=== PATIENT | male | born 1945 | race African-American/Black ===

== ENCOUNTER 2016-08-29 20:30 | Observation (INO) | payer OTHER ==
[2016-08-29] MEDS ORDERED: NITROGLYCERIN TOP ONE (20:43)
[2016-08-29] MEDS ORDERED: VASOTEC IV ONE (20:44)
[2016-08-29] MEDS ORDERED: ASPIRIN PO ONE (20:45)
--- NOTE | 2016-08-29 20:49 | PROVIDER DOCUMENTATION ---
HPI-Respiratory General - General Chief Complaint: Shortness of Breath Stated Complaint: SOB/CHEST PAIN Time Seen by Provider: 08/29/16 20:35 Source: patient Allergies/Adverse Reactions: Patient Allergies Allergy/AdvReac Type Severity Reaction Status Date / Time methylprednisolone sodium Allergy Intermediate SWELLING Verified 08/29/16 21:04 succ... * [From Solu-Medrol] morphine Allergy ITCHING Verified 08/29/16 22:01 Home Medications: Home Medication List Medication Instructions Recorded Confirmed Last Taken Type Valsartan/Hydrochlorothiazide 320 each PO DAILY 11/24/13 08/29/16 08/29/16 History [Diovan Hct 160-25 mg Tablet] Allopurinol 300 mg PO DAILY 11/26/15 08/29/16 08/29/16 History Baclofen 10 mg PO Q4-6H PRN PRN #30 tablet 08/24/16 08/29/16 08/29/16 Rx Tramadol [Ultram] 50 mg PO Q8H PRN PRN #30 tablet 08/24/16 08/29/16 08/29/16 Rx - History of Present Illness-Resp Nature of Presenting Problem: 70 YOBLKM PRESENTS TO ED WITH C/O PT STATES CANT BREATH AND CANT SWALLOW. PT STATES A CHOKING FEELING X 3 DAYS. SOB AND SWALLOWING PROBLEM STARTED 3 OR 4 HOURS [employer]PUT[employer]. Quality of Pain: reports: none Severity in ED: reports: moderate Onset/Duration: reports: 3 days ago Timing: reports: still present Exposure: reports: unknown cause Cough Quality/Degree: reports: moderate Modifying Factors: improves with: lying down (WORSEN) Associated Symptoms: reports: short of breath Similar Symptoms Previously?: No Recently seen or treated by another doctor?: No Review of Systems - Adult - REVIEW OF SYSTEMS - ADULT Constitutional: denies: chills, fever Eyes: reports: no symptoms reported Ears, Nose, Mouth & Throat: reports: no symptoms reported Cardiovascular: denies: chest pain, palpitations, syncope Respiratory: reports: cough, shortness of breath. denies: wheezing Gastrointestinal: denies: abdominal pain, diarrhea, nausea, vomiting Genitourinary: reports: no symptoms reported Musculoskeletal: denies: back pain, neck pain Integumentary: reports: no symptoms reported Neurological: denies: dizziness/vertigo, headache/migraines, syncope Psychiatric: reports: no symptoms reported Endocrine: reports: no symptoms reported Hematologic/Lymphatic: reports: no symptoms reported Allergic/Immunologic: reports: no symptoms reported All Other Systems: Reviewed and Negative Past History - Adult - PAST MEDICAL HISTORY-ADULT Review of Records: reports: Nursing Assessment Review, Medications Reviewed Cardiovascular: reports: HTN Musculoskeletal: reports: other (gout) Endocrine/Immune: reports: other (Gout) - PRIOR SURGERIES/PROCEDURES Surgical/Procedure History: reports: appendectomy, orthopedic (extremity) - IMMUNIZATION STATUS Childhood Immunizations: See Nurse Assessment Flu Vaccine: See Nurse Assessment - FAMILY HISTORY Family History: reviewed, not pertinent - SOCIAL HISTORY Smoking: quit less than 1 year, cigarettes, less than 1 pack/day Substance Use: denies Alcohol Use Frequency: never Living Situation: alone Physical Exam-General - CONSTITUTIONAL General Appearance: alert, moderate distress - EYES Eyes: PERRL/EOMI, pink conjunctivae - HEAD, EARS, NOSE, MOUTH & THROAT HENMT: normocephalic/atraumatic, moist mucous membranes - NECK Neck: non-tender, full range of motion, supple - RESPIRATORY Respiratory: chest non-tender, lungs clear, normal breath sounds - CARDIOVASCULAR Cardiovascular: normal peripheral pulses, regular rate, rhythm - GASTROINTESTINAL (ABDOMEN) Abdominal Exam: normal bowel sounds, non tender, soft - LYMPHATIC Lymphatic: no adenopathy - MUSCULOSKELETAL Back Exam: normal inspection, no CVA tenderness, no vertebral tenderness Extremity: normal range of motion, non-tender - SKIN Integumentary: normal color, normal turgor, warm/dry - NEUROLOGIC Neurologic: grossly normal - PSYCHIATRIC Psych/Mental Status: oriented x 3 Progress - PLAN OF CARE/RESULTS Progress/Plan/Lab Results: Laboratory Tests 08/29/16 08/29/16 08/29/16 20:50 20:50 20:50 WBC RBC Hgb Hct MCV MCH MCHC RDW Std Deviation Plt Count MPV Immature Gran % (Auto) Neut % (Auto) Lymph % (Auto) [place] % (Auto) Eos % (Auto) Baso % (Auto) Immature Gran # (Auto) Neut # (Auto) Lymph # (Auto) [place] # (Auto) Eos # (Auto) Baso # (Auto) Sodium 139 Potassium 3.9 Chloride 104 Carbon Dioxide 23 L Anion Gap 12 BUN 18 Creatinine 1.2 Estimated GFR/1.73 m2 60 BUN/Creatinine Ratio 15 Glucose 108 H Calculated Osmolality 280 Calcium 9.8 Total Bilirubin 0.20 AST 23 ALT 20 Alkaline Phosphatase 112 Creatine Kinase 145 Troponin T < 0.010 Ymo-H-Jgcrepdcamc Pept 295 H Total Protein 7.7 Albumin 4.3 Globulin 3.0 Albumin/Globulin Ratio 1.0 08/29/16 20:50 WBC 9.49 RBC 4.83 Hgb 14.4 Hct 42.7 MCV 88.4 MCH 29.8 MCHC 33.7 RDW Std Deviation 15.0 H Plt Count 203 MPV 9.8 Immature Gran % (Auto) 0.2 Neut % (Auto) 48.3 Lymph % (Auto) 42.7 [place] % (Auto) 7.2 Eos % (Auto) 1.4 Baso % (Auto) 0.2 Immature Gran # (Auto) 0.02 Neut # (Auto) 4.59 Lymph # (Auto) 4.05 H [place] # (Auto) 0.68 H Eos # (Auto) 0.13 Baso # (Auto) 0.02 Sodium Potassium Chloride Carbon Dioxide Anion Gap BUN Creatinine Estimated GFR/1.73 m2 BUN/Creatinine Ratio Glucose Calculated Osmolality Calcium Total Bilirubin AST ALT Alkaline Phosphatase Creatine Kinase Troponin T Vle-Q-Ijrsnkbrdqj Pept Total Protein Albumin Globulin Albumin/Globulin Ratio Orders Category Date Time Status BNP [PRO B-NATRIURETIC PEPTIDE] Stat Lab 08/29/16 20:50 Completed CBC WITH DIFF [HEME] Stat Lab 08/29/16 20:50 Completed CK PROFILE [SP CHEM] Stat Lab 08/29/16 20:50 Completed COMPREHENSIVE METABOLIC PANEL [CHEM] Stat Lab 08/29/16 20:50 Completed TROPONIN T Stat Lab 08/29/16 20:50 Completed Aspirin Med 08/29/16 20:45 Discontinued 325 mg PO NOW ONE Enalaprilat [Vasotec] Med 08/29/16 20:44 Discontinued 2.5 mg IV NOW ONE Nitroglycerin Med 08/29/16 20:43 Discontinued 1 inch TOP NOW ONE EKG [EKG] Stat Ther 08/29/16 20:36 Draft Vital Signs - 24 hr 08/29/16 20:36 Temperature 98.5 F Pulse Rate 77 Respiratory 18 Rate Blood Pressure 186/109 O2 Sat by Pulse 98 Oximetry - EKG 1 Time of EKG reading by physician:: 20:45 EKG Read and Signed by:: Adeel Oliver EKG Interpretation (*Must complete 3 of following elements*): Abnormal Rate: 72 Rhythm: SINUS RHYTHM W [address] DEG[address] AVBLOCK [place]: left (DEVIATION) QRS: RBB [place] Interval: normal ST Wave: normal Comments: MINIMAL CRITERIA FOR LVH,MAY BE NORMAL 2 Time of EKG reading by physician:: 23:01 EKG Read and Signed by:: Adeel Oliver EKG Interpretation (*Must complete 3 of following elements*): Abnormal Rate: 80 Rhythm: 1ST DEGREE AV BLOCK QRS: RBB [place] Interval: normal ST Wave: normal - CONSULTS/PCP/HOSPITALIST Notification #1 *Consult/PCP/Hospitalist*: DR SERVIN Time Discussed: 00:13 Reason/Comments: DR OLIVER SPOKE WITH DR SERVIN. DR SERVIN WILL ADMIT. Consult Disposition: Admit Departure - Departure Time of Disposition Order: 00:20 DIAGNOSIS: Chest pain, rule out acute myocardial infarction Disposition: ADMITTED INPATIENT 09 Certified Medical Emergency: Emergent Condition: Stable Additional Instructions: ED Follow Up Instructions: You have been treated by a care provider in the Emergency Department. These instructions are being provided to you so you can have an understanding of how to care for yourself upon discharge. Upon discharge from the Emergency Department, you are responsible for making arrangements for follow-up care by a physician of your choice. Take all prescribed medications as directed. Return to the Emergency Department immediately for any new or worsening symptoms. You may call the Physician Referral phone number at [phone] to obtain a list of Physicians who are taking new patients. Referrals: Lv Servin MD [Primary Care Provider] - Attestation - Scribe Verification/Attestation Scribe:: Andrew Nguyen Acting as Scribe for:: Adeel Oliver Scribe documention review:: This chart was documented by a scribe and accurately reflects the service the provider performed and the decisions made by the provider.
[2016-08-29 20:58] LABS: MANUAL DIFF NEEDED? NO
[2016-08-29 21:01] LABS: BASO% 0.2 % (0.0-0.8); EOS# 0.13 X1000 (0.0-0.7); EOS% 1.4 % (0.0-10.0); HEMATOCRIT 42.7 % (42.0-52.0); HEMOGLOBIN 14.4 g/dL (14.0-18.0); IMM GRAN# 0.02 X1000 (0.0-0.04); IMM GRAN% 0.2 % (0.0-0.5); LYMPH# 4.05 X1000 (1.2-3.4); LYMPH% 42.7 % (20.5-51.1); MCH 29.8 PG (27-31); MCHC 33.7 g/dL (33-37); MCV 88.4 FL (81-99); MONO# 0.68 X1000 (0.11-0.59); MONO% 7.2 % (1.7-9.3); MPV 9.8 FL (7.4-10.4); NEUT% 48.3 % (42.2-75.2); PLT 203 X1000 (130-400); RBC 4.83 XMIL (4.7-6.1)
--- NOTE | 2016-08-29 21:03 | EKG Report ---
Test Performed on : 08/29/2016 8:44:08 PM Test Reason : pain Blood Pressure : / mmHG Vent. Rate : 072 BPM Atrial Rate : 072 BPM P-R Int : 232 ms QRS Dur : 150 ms QT Int : 414 ms P-R-T Axes : 053 -30 015 degrees QTc Int : 453 ms Sinus rhythm. with 1st degree AV block. Left axis deviation Right bundle branch block Minimal voltage criteria for LVH, may be normal variant Abnormal ECG When compared with ECG of 24-AUG-2016 18:43, No significant change was found Unconfirmed Result
[2016-08-29 21:17] LABS: ALBUMIN 4.3 g/dL (3.5-5.0); CALCIUM 9.8 mg/dL (8.8-10.2); POTASSIUM 3.9 mmol/L (3.5-5.1); TOTAL BILIRUBIN 0.2 mg/dL (0.20-1.00); TOTAL PROTEIN 7.7 g/dL (6.3-8.3)
[2016-08-29] MEDS ORDERED: APRESOLINE IV ONE (21:35)
[2016-08-29] MEDS ORDERED: LASIX IV ONE (21:35)
[2016-08-29] MEDS ORDERED: SODIUM CHLORIDE 0.9% INJ ONE (21:38)
[2016-08-29] MEDS ORDERED: MORPHINE IV ONE (21:38)
[2016-08-29] MEDS ORDERED: PHENERGAN IV ONE (21:38)
[2016-08-29] MEDS ORDERED: DEMEROL IV ONE (22:04)
--- NOTE | 2016-08-29 23:21 | EKG Report ---
Test Performed on : 08/29/2016 11:00:02 PM Test Reason : pain Blood Pressure : / mmHG Vent. Rate : 080 BPM Atrial Rate : 080 BPM P-R Int : 250 ms QRS Dur : 138 ms QT Int : 428 ms P-R-T Axes : 053 -13 018 degrees QTc Int : 493 ms Sinus rhythm. with 1st degree AV block. Right bundle branch block Abnormal ECG When compared with ECG of 29-AUG-2016 22:58, (Unconfirmed) No significant change was found Unconfirmed Result
[2016-08-30] MEDS: TYLENOL PO PRN ×2 (02:19→19:31)
[2016-08-30] MEDS: NS 1,000 ML IV SCH (02:48)
[2016-08-30] MEDS: LASIX IV SCH ×2 (02:48→13:33)
--- NOTE | 2016-08-30 05:48 | EKG Report ---
Test Performed on : 08/30/2016 05:39:05 AM Test Reason : C/P Blood Pressure : / mmHG Vent. Rate : 069 BPM Atrial Rate : 069 BPM P-R Int : 204 ms QRS Dur : 158 ms QT Int : 472 ms P-R-T Axes : 054 -17 000 degrees QTc Int : 505 ms Normal sinus rhythm. Right bundle branch block Abnormal ECG When compared with ECG of 29-AUG-2016 23:00, (Unconfirmed) MS interval has decreased Confirmed by Lv Rocha MD ([id number]) on 09/15/2016 9:51:53 PM
[2016-08-30] MEDS: DIOVAN PO SCH (09:08)
[2016-08-30] MEDS: HYDROCHLOROTHIAZIDE PO SCH (09:09)
[2016-08-30] MEDS: ZYLOPRIM PO SCH (09:09)
[2016-08-30] MEDS ORDERED: NORCO-5 PO ONE ×3 (09:56→21:21)
--- NOTE | 2016-08-30 14:55 | Diag Imaging Result Document ---
PROCEDURE NAME: CHEST-2 VIEWS - 08/30/2016 TWO VIEWS OF THE CHEST: FINDINGS: There is no evidence of acute cardiac or pulmonary disease. There are severe degenerative changes in the right acromioclavicular joint. Compared to 08/24/2016, there has been significant change in the appearance of the chest. IMPRESSION: No evidence of acute disease.
--- NOTE | 2016-08-30 17:43 | CONSULTATION ---
DATE OF CONSULTATION: 08/30/2016 INDICATION: Shortness of breath, chest discomfort. HISTORY OF PRESENT ILLNESS: Mr. Kruger is a 70-year-old, black male with a history of hypertension, who over the last 3-4 days has had relatively constant chest discomfort, dysphagia as well as shortness of breath. This does not seem to be exertional in nature in regard to dyspnea or the chest discomfort. He has had difficulty swallowing solids but not liquids. He reports no exertional component to the chest pain. He has had worsening chest discomfort with coughing. There has been some mild orthopnea as well. He has no history of heart failure nor does he have any history of coronary disease. He reports no recent changes in his medications. He apparently came to the ER 5-6 days ago with similar complaints. PAST MEDICAL HISTORY: 1. Hypertension. 2. Gout. SOCIAL HISTORY: No current tobacco or alcohol. FAMILY HISTORY: Hypertension. REVIEW OF SYSTEMS: A 10 system review of systems is negative except for those mentioned in HPI. PHYSICAL EXAMINATION: Vital Signs: He is afebrile, heart rate is 68, blood pressure 118/76. General: He is in no acute distress. HEENT: Oropharynx is moist. Normal dentition. Eye examination is pink conjunctivae, white sclerae. Neck: Examination shows no obvious thyromegaly or thyroid tenderness. Cardiovascular: He is in regular rate and rhythm. He has no obvious murmurs. No S3. He has no lower extremity edema. He has no carotid bruits. Chest examination: Clear bilaterally. No increased work of breathing. Abdomen: Soft, nontender, nondistended. No obvious organomegaly. Skin Examination: Warm and dry without any rashes. Neurological: Moving all extremities well. Cranial nerves 2-12 are intact without any sensation deficits. Psychiatric: Alert and oriented, pleasant. Normal mood and affect. PERTINENT DATA: White count is 9.4, hematocrit 42, platelet count 203,000, sodium 139, potassium 3.9, BUN 18, creatinine 1.2. Cardiac enzymes are negative times multiple sets. proBNP is 295. Electrocardiogram was reviewed and demonstrates sinus rhythm, right bundle branch block, first- degree AV block is noted, no acute ST-segment changes. EKG at 23:00 yesterday is similar to the one that he had today. No acute ischemic changes or evidence for old infarct. ASSESSMENT: 1. Chest pain. 2. Dysphagia. 3. Shortness of breath. PLAN: Echo is currently pending. We will order myocardial perfusion imaging in the morning. I will start him on aspirin. If the myocardial profusion scan is normal then I would likely recommend a dysphagia evaluation and consideration for EGD or possible barium swallow. I will defer that to the primary physician.
[2016-08-30] MEDS ORDERED: NITROGLYCERIN SL PRN (19:55)
[2016-08-30 20:23] LABS: BE 1.3 mmoll (-3.0-3.0); BLOOD TYPE ARTERIAL; DRAW SITE L RADIAL; METHB 1.3 % (0.0-1.5); O2(CT) 20.4 mL/dL (15.0-23.0); PCO2(98.6) 36 mmHg (35-45); PO2(98.6) 75 mmHg (60-100); SAMPLE BLOOD; SAO2 97.7 % (95.0-100.0); THB 15.4 g/dL (11.5-17.4); pH(98.6) 7.45 (7.35-7.45)
[2016-08-30 20:26] LABS: ALLEN TEST YES; MODALITY ROOM AIR
--- NOTE | 2016-08-30 20:41 | EKG Report ---
Test Performed on : 08/30/2016 8:33:43 PM Test Reason : CP Blood Pressure : / mmHG Vent. Rate : 063 BPM Atrial Rate : 063 BPM P-R Int : 192 ms QRS Dur : 140 ms QT Int : 454 ms P-R-T Axes : 019 -30 014 degrees QTc Int : 464 ms Sinus rhythm. with occasional premature ventricular complexes. Left axis deviation Right bundle branch block Minimal voltage criteria for LVH, may be normal variant Septal infarct , age undetermined Abnormal ECG When compared with ECG of 30-AUG-2016 05:39, (Unconfirmed) premature ventricular complexes. are now present Confirmed by Lv Rocha MD ([id number]) on 09/15/2016 9:51:22 PM
[2016-08-30] MEDS ORDERED: AMBIEN PO ONE (21:20)
[2016-08-31] MEDS: LASIX IV SCH ×2 (00:04→13:53)
[2016-08-31] MEDS: NS 1,000 ML IV SCH (07:19)
[2016-08-31] MEDS: DIOVAN PO SCH (08:30)
[2016-08-31] MEDS: HYDROCHLOROTHIAZIDE PO SCH (08:30)
[2016-08-31] MEDS: ZYLOPRIM PO SCH (08:30)
[2016-08-31] MEDS ORDERED: ASPIRIN PO SCH (09:00)
--- NOTE | 2016-08-31 09:29 | ECHO REPORT ---
ORDER DATE: 08/30/2016 INTERPRETING PHYSICIAN: Parish Saldivar MD INDICATION: A 70-year-old male with chest pain and shortness of breath. The patient is at [facility], [place], [facility]. M-MODE MEASUREMENTS: Right ventricle: 3.7 cm. Left ventricle end diastole: 4.8 cm. Left ventricle end systole: 3.3 cm. Posterior wall: 1.2 cm. Interventricular septum: 1.2 cm. Left atrium: 4.1 cm. Aortic root: 4.4 cm. SUMMARY OF 2-DIMENSIONAL IMAGIN. The left ventricular function is normal. Ejection fraction is 59%. There is moderate enlargement of the left ventricular chamber. No definite wall motion abnormality appears to be present, although in some views the lateral wall is somewhat sluggish. 2. This study is somewhat difficult. 3. The right ventricle is moderately enlarged and shows good function. 4. The tricuspid valve shows mild regurgitation. 5. The inferior vena cava is not dilated. 6. The pulmonary pressure is normal. 7. The mitral valve looks normal. Color flow mapping is unremarkable. 8. Pulse wave Doppler of mitral inflow showed reversal of the E and the A waves. 9. Tissue Doppler of septal and lateral mitral annulus averages 7.5 cm. 10.Pulse wave Doppler of pulmonary venous flow is normal. There is no definite diastolic dysfunction. 11.The aortic valve opens normally. Color flow mapping is unremarkable. There is no stenosis and no regurgitation. 12.The pulmonic valve is normal. Color flow mapping is unremarkable. 13.There is no pericardial effusion and no sign of thrombus. SUMMARY: In summary, this study shows: 1. Overall preserved left ventricular systolic function. Ejection fraction appears to be in the neighborhood of 59%. Questionable sluggish motion of the posterolateral wall. 2. The right ventricle is moderately enlarged and shows good function. 3. No significant valvular abnormality is noted. 4. No definite diastolic dysfunction. 5. No pulmonary hypertension. Clinical correlation is recommended.
[2016-08-31] MEDS ORDERED: VALIUM PO ONE (10:59)
[2016-08-31] MEDS ORDERED: LEXISCAN ONE (12:45)
[2016-08-31 15:48] VITALS: BP 134/76
--- NOTE | 2016-08-31 16:24 | GRADED EXERCISE REPORT ---
DATE: 08/31/2016 PROCEDURE: Lexiscan Cardiolite stress test. Lexiscan was infused per standard protocol. Stress test by Dr. Rocha. Following Lexiscan infusion Cardiolite was injected 35.6 mCi of Cardiolite was injected for the stress phase, 12.1 mCi of Cardiolite was injected for the rest phase. Gated SPECT images were obtained in the standard views. Images revealed significant chest wall and diaphragmatic attenuation. There is no evidence of ischemia. Better tracer uptake on the stress compared to the rest. There is low- grade fixed defect in the base of the inferior wall with normal wall motion. This is likely to represent attenuation defect. Low probability of scar. Left ventricular ejection fraction 56%. Wall motion was normal. CONCLUSIONS: 1. No evidence of ischemia. 2. There is low-grade small-sized fixed defect in the base of the inferior wall with normal wall motion and significant attenuation defect is likely to represent attenuation defect, low probability of scar. 3. Left ventricular ejection fraction 56%. Wall motion was normal.
--- NOTE | 2016-09-29 23:25 | HISTORY AND PHYSICAL ---
HISTORY OF PRESENT ILLNESS: Mr. Kruger is a 70-year-old patient of mine in the office that I follow with hypertension, gout who presented to the emergency room on the day of admission, complaining of difficulty breathing and difficulty swallowing. He states he had a choking feeling for 3 days. He has been short of breath and had swallowing problems started about 3-4 hours prior to presentation. He said he had some moderate discomfort that is persistently present, it is worsened on lying down. It is associated with shortness of breath. He has never had a quite like this previously. REVIEW OF SYSTEMS: Constitutionally: Denies any fevers, chills, significant weight gain, weight loss. Eyes: No field cuts, change in visual acuity, redness or irritation. Ears, Nose and Throat: No pharyngitis, otitis or sinusitis. Cardiovascular: Denies chest pain, palpitations, syncope, irregular heart rate, edema, paroxysmal nocturnal dyspnea, orthopnea. Respiratory: He has been coughing and short of breath. Not really wheezing. Gastrointestinal: No abdominal pain, diarrhea, nausea, vomiting, melena, hematochezia or significant reflux. Genitourinary: Some lower urinary tract obstructive symptoms. Some impotence. No polyuria or hematuria. Musculoskeletal: Denies joint pain, but has some generalized neck and back pain. Skin: No rashes or lesions. Neurological: Denies dizziness, vertigo, headaches, migraine, syncope. Psychiatric: Negative. Endocrine: No polyuria, polydipsia, no heat or cold intolerance. Hematological: No clotting or bleeding disorder. No anemia, spleen issues. ALLERGIES: No asthma, eczema or hay fever. PAST MEDICAL HISTORY: He has hypertension and gout. PAST SURGICAL PROCEDURES: Appendectomy and some orthopedic surgeries in the past. SOCIAL HISTORY: He quit smoking less than a year ago. He has been a chronic smoker. He does not use illegal drugs, does not have history of any alcohol usage. PHYSICAL EXAMINATION: VITAL SIGNS: At time of admission, his temperature 98.5, pulse 77, respiratory 18, blood pressure 186/109, O2 saturation was 98. GENERAL: He was generally normal, alert and active, in moderate distress. HEENT: Eyes were PERRLA. EOMs intact. Sclerae clear, fundi benign. Nares patent. Oropharynx negative. NECK: Supple. Bounding carotids without thyromegaly or lymphadenopathy. CHEST: Bilaterally clear breath sounds. No rubs, no consolidative features were appreciated. CARDIOVASCULAR: He had a regular rhythm and rate. No murmurs, gallops, clicks, or rubs. Peripheral pulses were intact. ABDOMEN: Somewhat obese. No hepatosplenomegaly. No organomegaly and no CVA tenderness. LYMPHATICS: No lymphadenopathy. MUSCULOSKELETAL: Normal inspection of his back. No CVA tenderness. No vertebral tenderness. Normal range of motion. SKIN: Clear. NEUROLOGIC: No focal deficits were appreciated. PSYCHIATRIC: Negative. PERTINENT DATA: At time of admission, his sodium was 139, potassium 3.9, chloride 104, CO2 was 23, BUN was 18, creatinine 1.2, anion gap 12. Estimated GFR was 60, BUN ratio was 15, glucose 108, calculated osmolality 280, calcium 9.8, total bilirubin 0.12. His AST 23, ALT 20, alkaline phosphatase 112. CK 145. Troponin less than 0.010. BNP 295. Total protein 7.7, albumin 4.3, globulin 3. White count was 9490, hematocrit 42.3, platelet count was 203,000. He had a series of EKGs that show sinus rhythm, 1st degree AV block and right bundle configuration. Nonspecific ST-segment changes that did not evolve while in the ER. ASSESSMENT AND PLAN: He was admitted by the emergency room physician as a chest pain, rule out myocardial infarction.
--- NOTE | 2016-09-30 08:29 | DISCHARGE SUMMARY ---
ADMISSION DATE: 08/30/2016 DISCHARGE DATE: 08/31/2016 The patient was admitted on 08/30/2016 after he presented to the emergency room complaining of some shortness of breath and chest pain with a background history of hypertension and gout. He has an allergy to morphine and Solu-Medrol. He was seen in the ER initially. Had a right bundle-branch configuration on his EKG and admitted at for rule out. He was seen in consultation by Dr. Van. He felt that it was atypical chest pain, nonexertional in nature, and had some issues with dysphagia. He felt that this may represent the more pressing agent. He recommended us to do an echo, which was in the process and we are going to do an effusion test in the morning. His gated nuclear scan showed no evidence of ischemia. There is a low-grade small size fixed defect in the base of the inferior wall with normal wall motion and significant attenuation defects likely represent attenuation defect, low probability of scar. Ejection fraction was 56%. His chest x-ray showed no evidence acute disease. Echocardiogram showed preserved left systolic function. Ejection fraction 59%. Questionable sluggish motion in the posterior wall. Right ventricle was mildly enlarged and showed good function. No significant valve abnormalities. No definite diastolic dysfunction. No pulmonary hypertension. He has some blood gases. PH was 7.5, pO2 75, pCO2 was 36. He had a carboxyhemoglobin of 2.2 on room air. Serial cardiac enzymes were all negative. BNP was 295. Blood sugars random, was 108. He was discharged. Treated for reflux disease.
== END 2016-08-31 20:25 | disposition home or self-care (01) ==
LOC: P.ED 20:30 → P.MEDSURG 08-30 01:07
PROVIDERS: ADMIT Internal Medicine; ATTEND Internal Medicine
DX: R07.89 Other chest pain (principal); R13.10 Dysphagia, unspecified; I10 Essential (primary) hypertension; M10.9 Gout, unspecified; R06.02 Shortness of breath; R94.31 Abnormal electrocardiogram [ECG] [EKG]; M54.89 Other dorsalgia; Z87.891 Personal history of nicotine dependence; Z79.899 Other long term (current) drug therapy; Z82.49 Family history of ischemic heart disease and other diseases of the circulatory system
CPT/HCPCS: 71020; 78452; 80053; 82550; 82805; 83880; 84484; 85025; 93005; 93010; 93017; 93306; 96374; 96375; A9500; G0378; J0360; J1940; J2175; J2270; J2550; J7030

== ENCOUNTER 2019-01-17 16:50 | Inpatient (IN) ==
--- NOTE | 2019-01-17 17:03 | EKG Report ---
Test Performed on : 01/17/2019 5:00:34 PM Test Reason : sob chest tightness Blood Pressure : / mmHG Vent. Rate : 081 BPM Atrial Rate : 081 BPM P-R Int : 194 ms QRS Dur : 156 ms QT Int : 434 ms P-R-T Axes : 049 -45 -04 degrees QTc Int : 504 ms Normal sinus rhythm. Right bundle branch block Left anterior fascicular block Bifascicular block Minimal voltage criteria for LVH, may be normal variant Abnormal ECG When compared with ECG of 30-AUG-2016 20:33, premature ventricular complexes. are no longer present Left anterior fascicular block is now present Unconfirmed Result
[2019-01-17] MEDS ORDERED: ASPIRIN PO ONE (17:07)
--- NOTE | 2019-01-17 17:13 | PROVIDER DOCUMENTATION ---
HPI-Chest Pain - General Chief Complaint: Shortness of Breath Stated Complaint: SOB Time Seen by Provider: 01/17/19 17:02 Source: patient Allergies/Adverse Reactions: Patient Allergies Allergy/AdvReac Type Severity Reaction Status Date / Time methylprednisolone sodium Allergy Intermediate SWELLING Verified 08/29/16 21:04 succ... * [From Solu-Medrol] morphine Allergy ITCHING Verified 08/29/16 22:01 Home Medications: Home Medication List Medication Instructions Recorded Confirmed Last Taken Type Allopurinol [Zyloprim] 300 mg PO DAILY 09/17/17 01/17/19 09/17/17 History Hydroxyzine [Atarax] 25 mg PO PRN PRN 01/17/19 01/17/19 Unknown History Olmesartan Medoxomil 40 mg PO DAILY 01/17/19 01/17/19 Unknown History - History of Present Illness-CP Nature of Presenting Problem: Patient is a 73 yobm presenting to the ED today for chest tightness and sudden onset SOB. he denies any cough, chest pain, dizziness, back pain, N/V, altered mental status. he reports pain in his left arm for the last 3 days. patient in no acute distress on assessment. he denies any cardiac history, but does report hypertension. Location: reports: central Chest Pain Radiation: reports: no radiation Quality of Pain: reports: tightness Severity in ED: moderate Onset/Duration: just prior to arrival Timing: still present Context/Activities at Onset: reports: light activity Modifying Factors: improves with: nothing Associated Symptoms: reports: denies symptoms, shortness of breath. denies: abdominal pain, back pain, diaphoresis, dizziness, edema, fatigue, fever/chills, headache, heartburn, nausea, rash, swelling/lump in chest, syncope, vomiting, weakness Nitro Today/Relief: no nitro taken today Aspirin Treatment Today: no aspirin today Prior Chest Pain/Cardiac Workup: reports: no prior chest pain Similar Symptoms Previously?: No Recently Seen Here or By Another Healthcare Provider: No Review of Systems - Adult - REVIEW OF SYSTEMS - ADULT Constitutional: reports: no symptoms reported. denies: chills, fever Eyes: reports: no symptoms reported Ears, Nose, Mouth & Throat: reports: no symptoms reported Cardiovascular: reports: chest pain (chest tightness). denies: edema, irregular heart rate, palpitations, syncope Respiratory: reports: shortness of breath. denies: cough, wheezing Gastrointestinal: reports: no symptoms reported. denies: abdominal pain, diarrhea, nausea, vomiting Genitourinary: reports: no symptoms reported Musculoskeletal: reports: no symptoms reported. denies: back pain Integumentary: reports: no symptoms reported Neurological: reports: no symptoms reported. denies: dizziness/vertigo, headache/migraines Psychiatric: reports: no symptoms reported Endocrine: reports: no symptoms reported Hematologic/Lymphatic: reports: no symptoms reported Allergic/Immunologic: reports: no symptoms reported All Other Systems: Reviewed and Negative Past History - Adult - PAST MEDICAL HISTORY-ADULT Review of Records: reports: Old Records Reviewed, Nursing Assessment Review, Medications Reviewed Major Childhood Illnesses: reports: denies history Cardiovascular: reports: HTN Respiratory: reports: denies history Gastrointestinal: reports: denies history Obstetrical/Gynecological: reports: denies history Genitourinary: reports: denies history Musculoskeletal: reports: other (gout) Neurological: reports: denies history Endocrine/Immune: reports: other (Gout) Other Conditions: reports: denies history - PRIOR SURGERIES/PROCEDURES Surgical/Procedure History: reports: appendectomy, orthopedic (extremity) - IMMUNIZATION STATUS Childhood Immunizations: See Nurse Assessment Flu Vaccine: See Nurse Assessment - FAMILY HISTORY Family History: reviewed, not pertinent - SOCIAL HISTORY Smoking: cigarettes Provider spent 3-5 mins advising pt. on dangers of tobacco.: Discussed manners to quit use, and f/u contacts for add'l counseling. Physical Exam-General - PHYSICAL EXAM-ADULT Initial Vital Signs Reviewed: Yes - CONSTITUTIONAL General Appearance: appears well, alert, no apparent distress - EYES Eyes: PERRL/EOMI, pink conjunctivae - HEAD, EARS, NOSE, MOUTH & THROAT HENMT: normocephalic/atraumatic, moist mucous membranes - NECK Neck: non-tender, full range of motion, supple - RESPIRATORY Respiratory: chest non-tender, lungs clear, normal breath sounds, no respiratory distress, no accessory muscle use, increased rate - CARDIOVASCULAR Cardiovascular: normal peripheral pulses, regular rate, rhythm, no edema, no JVD - GASTROINTESTINAL (ABDOMEN) Abdominal Exam: normal bowel sounds, non tender, soft - LYMPHATIC Lymphatic: no adenopathy - MUSCULOSKELETAL Back Exam: normal inspection, no CVA tenderness, no vertebral tenderness Extremity: normal range of motion, non-tender, normal gait - SKIN Integumentary: normal color, normal turgor, warm/dry - NEUROLOGIC Neurologic: grossly normal, no motor/sensory deficits - PSYCHIATRIC Psych/Mental Status: normal mood/affect, normal thought content, normal thought process, oriented x 3 - HEART Score HEART Score: History: Moderately Suspicious HEART Score: ECG: Non-Specific Repolarization Disturbance/LBBB/PM HEART Score: Age: > or = 65 Years HEART Score: Risk Factors for Atherosclerotic Disease: 1 or 2 Risk Factors HEART Score: Troponin: < or = Normal Limit Total HEART Score:: 5 Progress - PLAN OF CARE/RESULTS Progress/Plan/Lab Results: Discussed plan of care with patient, he understands and agrees with plan of care and denies any questions at this time. Result Diagrams: 01/17/19 17:10 01/17/19 21:10 - XRAY 1 XRAY Study: Chest Impression: See EMR Report ( Signed EXAM: CHEST-2 VIEWS INDICATION: sob chest tightness TECHNIQUE: 2 views COMPARISON: 03/14/2018 FINDINGS: The lungs are grossly clear. There is no discrete pleural fluid collection or pneumothorax. The cardiomediastinal silhouette and central vasculature are grossly unremarkable. IMPRESSION: No evidence of acute pathology by plain radiograph. Electronically signed by Wolf Stevenson 01/17/2019 5:27 PM 01/17/191726 Interpreting Physician: Wolf Stevenson MD Dictated Date/Time: 01/17/191726 cc: Keron Long MD; Lv Rocha MD) - CONSULTS/PCP/HOSPITALIST Notification #1 *Consult/PCP/Hospitalist*: Dr. Torrez Time Discussed: 18:30 Reason/Comments: Admiting patient for SOB, chest tightness Consult Disposition: Will see in ED, Admit Departure - Departure Date of Disposition Decision: 01/17/19 Time of Disposition Decision: 18:00 DIAGNOSIS: Shortness of breath, Chest tightness Disposition: ADMITTED INPATIENT 09 Certified Medical Emergency: Emergent Condition: Stable - Critical Care Note This patient required my direct & personal management of CC.: No Attestation - Physician/ BETSY Attestation Patient care was provided by Advanced Practice Provider:: Yes Advanced Practice Provider:: Lara Gongora Advanced Practice Provider documentation review:: The Mid-level provider documentation, treatment plan and medical decision making was reviewed by the physician who agrees with all treatment and medical decision making by the MLP. The physician spent face to face time with patient:: No Advanced Practice Provider documentation review:: Supervising physician onsite and consulted in the evaluation and care of this patient. The physician did not have a face to face encounter with the patient.
[2019-01-17] MEDS ORDERED: TYLENOL PO ONE (17:27)
--- NOTE | 2019-01-17 17:30 | Diag Imaging Result Doc PS360 ---
EXAM: CHEST-2 VIEWS INDICATION: sob chest tightness TECHNIQUE: 2 views COMPARISON: 03/14/2018 FINDINGS: The lungs are grossly clear. There is no discrete pleural fluid collection or pneumothorax. The cardiomediastinal silhouette and central vasculature are grossly unremarkable. IMPRESSION: No evidence of acute pathology by plain radiograph. Electronically signed by Wolf Stevenson 01/17/2019 5:27 PM
--- NOTE | 2019-01-17 17:36 | ED EKG INTERP ---
This chart was entered by Apple Stevenson Scribe, acting as scribe for Keron Long MD. EKG Interpretation - EKG Time of EKG reading by physician:: 17:05 EKG Read and Signed by:: Keron Long EKG Interpretation (*Must complete 3 of following elements*): Abnormal Rate: 81 (left anterior fascicular block) Rhythm: NSR [place]: normal QRS: RBB, LVH (minimal voltage criteria for lvh, may be normal variant) [place] Interval: normal ST Wave: normal Comments: bifascicular block Attestation - Physician/ BETSY Attestation Patient care was provided by Advanced Practice Provider:: Yes Advanced Practice Provider:: Lara Gongora Advanced Practice Provider documentation review:: The Mid-level provider documentation, treatment plan and medical decision making was reviewed by the physician who agrees with all treatment and medical decision making by the MLP. The physician spent face to face time with patient:: No Advanced Practice Provider documentation review:: Supervising physician onsite and consulted in the evaluation and care of this patient. The physician did not have a face to face encounter with the patient. This chart was documented by the indicated scribe, (Apple Stevenson Scribe) and accurately reflects the services I performed and decisions made by me, Keron Long MD, as attested by the provider's signature.
[2019-01-17 17:37] LABS: BASO# 0.03 X1000 (0.0-0.2); BASO% 0.3 % (0.0-0.8); HEMATOCRIT 42.8 % (42.0-52.0); HEMOGLOBIN 14.9 g/dL (14.0-18.0); IMM GRAN# 0.02 X1000 (0.0-0.04); IMM GRAN% 0.2 % (0.0-0.5); LYMPH% 31.1 % (20.5-51.1); MCH 30.2 PG (27-31); MCHC 34.8 g/dL (33-37); MCV 86.8 FL (81-99); MONO# 0.53 X1000 (0.11-0.59); MONO% 5.3 % (1.7-9.3); NEUT# 6.18 X1000 (1.4-6.5); NEUT% 62.1 % (42.2-75.2); PLT 223 X1000 (130-400); RBC 4.93 XMIL (4.7-6.1); RDW 15.4 % (11.5-14.5); WBC 9.96 X1000 (4.8-10.8)
[2019-01-17 17:59] LABS: AGAP 13; ALBUMIN 3.8 g/dL (3.5-5.0); ALKALINE PHOSPHATASE 96 U/L (32-122); BUN 11 mg/dL (8-22); CHLORIDE 110 mmol/L (98-107); COSMO 288; ESTIMATED GFR > 60; GLUCOSE 156 mg/dL (70-104); GOT 16 U/L (10-34); GPT 12 U/L (10-44); MAGNESIUM 1.9 mg/dL (1.5-2.7); POTASSIUM 3.5 mmol/L (3.5-5.1); SODIUM 143 mmol/L (136-145); TCO2 21 mmol/L (25-35)
[2019-01-17] MEDS ORDERED: ZOFRAN IV PRN (18:46)
[2019-01-17] MEDS ORDERED: AMBIEN PO PRN (18:46)
[2019-01-17] MEDS ORDERED: ZOFRAN IV ONE (19:57)
[2019-01-17] MEDS ORDERED: ZOFRAN LIQUID PO ONE (19:57)
[2019-01-17] MEDS ORDERED: DEMEROL IV ONE (19:58)
--- NOTE | 2019-01-17 20:04 | HISTORY AND PHYSICAL ---
HISTORY OF PRESENT ILLNESS: The patient is a 73-year-old black male whom I see in the office for hypertension and gout, primarily. He earlier this afternoon was feeling poorly. He lay down to take a nap and woke up and had a discomfort in his midsternal area that has been persistent since that. That is now 3 hours in the making. The pain is still present. He is also complaining of a headache and shortness of breath. He has no known history of cardiac disease. He has only had just isolated hypertension. In the ER he had a temperature of 97.8, pulse of 82, respiratory rate of 18, blood pressure of 157/75, and 02 saturation of 97%. INITIAL LABORATORY DATA: A CBC was normal. Initial cardiac enzymes were negative. His D-Dimer was 0.46. Comp was normal. BNP was 226. Total protein was 7, albumin 3.8, globulin 3. Chest x- ray was grossly clear. No discrete pleural collections or pneumothorax. The cardiac silhouette and central vascular were unremarkable. No evidence of pathology. He had a heart score of 5. ALLERGIES: None. MEDICATIONS: Allopurinol and Zebeta are the only 2 medications that he says he is taking. PAST MEDICAL HISTORY: Previously he has had a history of gout and hypertension. PAST SURGICAL HISTORY: He is status post an appendectomy. He has had some orthopaedic surgeries in the past. REVIEW OF SYSTEMS: CONSTITUTIONAL: He denies any fever, chills, night sweats. EYES: No change in his visual acuity. EARS/NOSE/THROAT: No pharyngitis, otitis, or sinusitis. CARDIOVASCULAR: He has some chest pain that is very atypical. He denies edema, irregular heart rate, palpitations, PND, orthopnea, syncope or TIAs. RESPIRATORY: Denies any cough or wheeze. No phlegm. He is not particularly short of breath, but he feels more short of breath than he normally does. GASTROINTESTINAL: No nausea, vomiting, diarrhea, constipation, bloody/black/tarry stools. : No dysuria, hematuria, polyuria. MUSCULOSKELETAL: Negative. SKIN: No rashes, no wheezes. NEUROLOGICAL: He has a headache. History of migraines. He is complaining of a headache more than anything else currently PSYCHIATRIC: He has no history of any psychiatric illnesses. ENDOCRINE: He has no thyroid disease, no diabetes, no hormone issues. HEMATOLOGICAL: No DVTs, SVTs, PTEs, bleeding or clotting disorders. PHYSICAL EXAMINATION: HEENT: At the time of admission, his head was normocephalic. Eyes: PERRL. Extraocular movements intact. Sclerae and conjunctivae clear. Fundi benign. Nares patent. Oropharynx negative. CHEST: Clear. Diminished breath sounds. CARDIOVASCULAR: Regular rhythm and rate. No murmurs, gallops, clicks or rubs. ABDOMEN: Obese, somewhat distended. No CVA tenderness. No organomegaly. EXTREMITIES: Negative. NEUROLOGICAL: Intact. ADMITTING DIAGNOSES: 1. Atypical chest pain. 2. History of hypertension and dyslipidemia. PLAN: He will be admitted for observation. cc: Lv Rocha MD
[2019-01-17 21:51] LABS: AGAP 10; ALBUMIN 3.8 g/dL (3.5-5.0); ALKALINE PHOSPHATASE 103 U/L (32-122); BUN 13 mg/dL (8-22); CALCIUM 8.6 mg/dL (8.8-10.2); CHLORIDE 110 mmol/L (98-107); COSMO 282; CREATININE 0.9 mg/dL (0.7-1.2); ESTIMATED GFR > 60; GLUCOSE 105 mg/dL (70-104); GOT 16 U/L (10-34); GPT 11 U/L (10-44); POTASSIUM 4.1 mmol/L (3.5-5.1); SODIUM 141 mmol/L (136-145); TCO2 21 mmol/L (25-35); TOTAL PROTEIN 6.7 g/dL (6.3-8.3)
[2019-01-18 03:21] LABS: HEMATOCRIT 41.5 % (42.0-52.0); HEMOGLOBIN 14.3 g/dL (14.0-18.0); MCH 30.1 PG (27-31); MCHC 34.5 g/dL (33-37); MCV 87.4 FL (81-99); MPV 9.8 FL (7.4-10.4); RBC 4.75 XMIL (4.7-6.1); RDW 15.5 % (11.5-14.5); WBC 7.6 X1000 (4.8-10.8)
[2019-01-18] MEDS ORDERED: NORCO-7.5 PO ONE (06:47)
--- NOTE | 2019-01-18 13:55 | EKG Report ---
Test Performed on : 01/18/2019 06:49:36 AM Test Reason : EMBOLI Blood Pressure : / mmHG Vent. Rate : 059 BPM Atrial Rate : 059 BPM P-R Int : 274 ms QRS Dur : 156 ms QT Int : 476 ms P-R-T Axes : 052 -24 -17 degrees QTc Int : 471 ms Sinus bradycardia. with 1st degree AV block. Right bundle branch block Minimal voltage criteria for LVH, may be normal variant Abnormal ECG When compared with ECG of 17-JAN-2019 19:54, (Unconfirmed) No significant change was found Confirmed by Lv Rocha MD ([id number]) on 02/09/2019 7:48:50 AM
--- NOTE | 2019-01-18 13:56 | EKG Report ---
Test Performed on : 01/17/2019 7:54:12 PM Test Reason : emboli Blood Pressure : / mmHG Vent. Rate : 065 BPM Atrial Rate : 065 BPM P-R Int : 262 ms QRS Dur : 160 ms QT Int : 458 ms P-R-T Axes : 044 -33 -14 degrees QTc Int : 476 ms Sinus rhythm. with 1st degree AV block. Possible Left atrial enlargement Left axis deviation Right bundle branch block Left ventricular hypertrophy Abnormal ECG When compared with ECG of 17-JAN-2019 17:00, (Unconfirmed) MI interval has increased Left anterior fascicular block is no longer present Unconfirmed Result
[2019-01-18] MEDS: TYLENOL PO PRN ×2 (15:04)
[2019-01-18 15:36] LABS: BE -2.4 mmoll (-3.0-3.0); BLOOD TYPE ARTERIAL; HCO3-(ACT) 22.8 mmoll (20.0-26.0); METHB 1.5 % (0.0-1.5); O2(CT) 19.4 mL/dL (15.0-23.0); O2HB 90.3 % (95.0-99.0); PCO2(98.6) 42 mmHg (35-45); PO2(98.6) 61 mmHg (60-100); SAMPLE BLOOD; SAO2 94.1 % (95.0-100.0); THB 15.3 g/dL (11.5-17.4); pH(98.6) 7.35 (7.35-7.45)
[2019-01-18 15:40] LABS: ALLEN TEST YES; MODALITY ROOM AIR
[2019-01-18] MEDS: NORCO-7.5 PO PRN (17:31)
--- NOTE | 2019-01-18 18:33 | Diag Imaging Result Doc PS360 ---
EXAM: CT HEAD W/O CONTRAST 01/18/2019 HISTORY: headaches TECHNIQUE: This exam was performed using automated exposure control, adjustment of mA or kV according to patient size, and/or use of iterative reconstruction technique. COMMENT: There are calcifications in the internal carotid arteries bilaterally. There is mucosal thickening in the left sphenoid sinus. There is no evidence of intracranial mass effect, bleed, or abnormal extra-axial fluid collection. There is periventricular white matter lucency in both hemispheres particularly in the posterior parietal lobes. Compared to 12/10/2013 there has been no significant change in the appearance of the brain. IMPRESSION: Chronic ischemic microvascular disease. No evidence of acute intracranial disease. Left sphenoid sinusitis. Electronically signed by Danny Parrish 01/18/2019 6:30 PM
[2019-01-19] MEDS: NORCO-7.5 PO PRN ×2 (03:56→14:30)
[2019-01-19] MEDS ORDERED: CATAPRES PO ONE (14:05)
[2019-01-19] MEDS ORDERED: NORVASC PO ONE (14:05)
[2019-01-19 15:17] VITALS: BP 128/66
--- NOTE | 2019-01-19 18:51 | Diag Imaging Result Document ---
PROCEDURE NAME: MYOCARDIAL PERF SCAN, STR/REST - 01/19/2019 LEXISCAN SESTAMIBI SCAN: SUMMARY: The patient was administered 14.6 mCi of technetium-99m sestamibi, after which resting cardiac images were obtained. The patient was subsequently administered Lexiscan 0.4 mg intravenously after which the heart rate went from 59 beats per minute to 80 beats per minute. The blood pressure went from 174/92 to 169/94. With Lexiscan, the patient denied chest discomfort. Following the administration of Lexiscan, the patient was administered 40.5 mCi of technetium-99m sestamibi, after which gated stress cardiac images were obtained. Baseline ECG demonstrates sinus bradycardia and right bundle branch block. With Lexiscan, there were no diagnostic ST segment changes. SPECT images were reconstructed in the short, horizontal, and vertical long axis. Review of these images demonstrated a medium-sized area of mild to moderate diminished activity in the inferior wall on stress images which improves on resting images. Gated images demonstrate a calculated left ventricular ejection fraction of 48% with symmetrical wall motion/thickening. CONCLUSIONS: 1. Adequate response to Lexiscan. 2. Clinically negative for chest pain. 3. Electrocardiographically negative for Lexiscan-induced myocardial ischemia. 4. Lexiscan sestamibi images demonstrate mild to moderate reversibility in the basal and mid inferior wall suggesting inducible myocardial ischemia in this region. Clinical correlation is recommended. 5. Lexiscan sestamibi images demonstrate a medium-sized area of mild to moderate diminished activity in the basal and mid inferior wall on stress images which improves on resting images. Gated images demonstrate a calculated left ventricular ejection fraction of 53% with symmetrical wall motion/thickening. cc: MD Lv Leon MD
--- NOTE | 2019-02-21 18:16 | PROGRESS NOTE ---
DATE: 01/18/2019 SUBJECTIVE: He had a CT of the head done which showed no significant findings. OBJECTIVE: Vital Signs: Temperature 97.8, pulse 62, respiratory rate 16, blood pressure 157/74, O2 saturation 97%. LABORATORY: His serial cardiac CKs are 87, 78, and 74. His troponins are all 0.10. cc: Lv Rocha MD
--- NOTE | 2019-02-21 18:31 | DISCHARGE SUMMARY ---
ADMISSION DATE: 01/17/2019 DISCHARGE DATE: 01/19/2019 HISTORY OF PRESENT ILLNESS: This is a hypertensive patient of mine who presented to the emergency room feeling like he was weak. He took a nap and started having chest pain in the midsternal area. This had been going on, off and on, for three hours, persistent pain. Also, vague complaint of headache and shortness of breath. ALLERGIES: He has no allergies. MEDICATIONS AT HOME: Include, allopurinol and Zebeta. Those are the only two medicines that he has been taking. SURGICAL HISTORY: He is status post appendectomy and some orthopedic surgeries. HOSPITAL COURSE: In the ER, he had the following tests, which include Radiology. He had initial chest x-ray which was negative. He had some EKGs, heart rate 59, first degree block, right bundle branch block, minimal voltage criteria for LVH, may be a normal variant; no changes from previous. He had a perfusion myocardial scan done which showed an adequate response to Lexiscan, negative for chest pain, there is no Lexiscan induced myocardial ischemia. There was some mild to moderate reversibility in the basal and mid inferior wall suggesting inducible myocardial ischemia in this region. Calculated left ventricular ejection fraction was 53%. His blood gases from 01/18/2019: pH 7.35, pCO2 42, pO2 61, carboxyhemoglobin 2.5, FIO2 was 21%. Serial cardiac enzymes were all negative. His sodium was 143, potassium 3.5, chloride 110, carbon dioxide 21 on admission. BUN 11 and creatinine 1. GFR greater than 60. BUN/creatinine ratio was 11. Blood glucose 156. LFTs were normal. Proteins and albumins likewise were normal. No evolution, no changes. CBCs were unremarkable. D dimer was 0.46. After being in the hospital and ruled out with a Lexiscan and enzymes, he was discharged. During the hospital stay he received some aspirin, Zofran, Ambien, and some Tylenol. He was scheduled to follow up the results of his Lexiscan. DISCHARGE MEDICATIONS: Allopurinol 300, olmesartan 40, hydroxyzine 25 p.r.n. anxiety, Levaquin 500 p.o. daily, Zofran, and [place] 5. FINAL DIAGNOSES: 1. Atypical chest pain. 2. High blood pressure. 3. Gout. FOLLOWUP: As an outpatient. cc: Lv Rocha MD
== END 2019-01-19 17:42 | disposition home or self-care (01) | DRG 313 ==
LOC: P.ED 16:50 → P.MEDSURG 20:06
PROVIDERS: ATTEND Internal Medicine
CPT/HCPCS: 70450; 71020; 71046; 78452; 80053; 82550; 82805; 83735; 83880; 84484; 85025; 85027; 85379; 93005; 93010; 93017; 94761; 99285; A9270; A9500; J2175; J2405

== ENCOUNTER 2019-06-10 19:17 | Inpatient (IN) ==
--- NOTE | 2019-06-10 19:28 | PROVIDER DOCUMENTATION ---
HPI-Chest Pain - General Chief Complaint: Chest Pain Stated Complaint: CP Time Seen by Provider: 06/10/19 19:20 Source: patient Allergies/Adverse Reactions: Patient Allergies Allergy/AdvReac Type Severity Reaction Status Date / Time methylprednisolone sodium Allergy Intermediate SWELLING Verified 06/10/19 20:08 succ... * [From Solu-Medrol] morphine Allergy ITCHING Verified 06/10/19 20:08 Home Medications: Home Medication List Medication Instructions Recorded Confirmed Last Taken Type Allopurinol [Zyloprim] 300 mg PO DAILY 09/17/17 06/10/19 09/17/17 History Hydroxyzine [Atarax] 25 mg PO PRN PRN 01/17/19 06/10/19 Unknown History Aspirin [Adult Aspirin Regimen] 81 mg PO DAILY 06/10/19 06/10/19 Unknown History Hydrochlorothiazide 25 mg PO DAILY 06/10/19 06/10/19 Unknown History Metoprolol [Lopressor] 25 mg PO BID 06/10/19 06/10/19 Unknown History - History of Present Illness-CP Nature of Presenting Problem: 73 YO M pmh for HTN presents for acute onset chest and epigastric pain 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 Pt states he was traveling from [place] when he had the sharp pain in his epigastric region radiating to his back. He denies fever, chills, new foods. He was given ASA and nitro by EMS with no relief. He states he is allergic to morphine. Location: reports: epigastric, back Chest Pain Radiation: reports: back Quality of Pain: reports: pressure, sharp, stabbing Severity in ED: severe Onset/Duration: 1-3 hours ago Timing: still present Context/Activities at Onset: reports: none Modifying Factors: improves with: nothing Associated Symptoms: reports: abdominal pain, back pain. denies: edema, fever/chills, rash Nitro Today/Relief: 0.4 mg x 2, provided by EMS Aspirin Treatment Today: 325 mg x 1, provided by EMS Prior Chest Pain/Cardiac Workup: reports: cardiac cath, echocardiography Similar Symptoms Previously?: Yes Recently Seen Here or By Another Healthcare Provider: No Review of Systems - Adult - REVIEW OF SYSTEMS - ADULT Constitutional: denies: chills, fever Eyes: reports: no symptoms reported Ears, Nose, Mouth & Throat: reports: no symptoms reported Cardiovascular: reports: see HPI, chest pain. denies: edema, heart murmur, palpitations Respiratory: denies: cough, shortness of breath, wheezing Gastrointestinal: reports: see HPI, abdominal pain. denies: difficulty swallowing, nausea, vomiting Genitourinary: reports: no symptoms reported Musculoskeletal: reports: no symptoms reported Integumentary: reports: no symptoms reported Endocrine: reports: no symptoms reported Past History - Adult - PAST MEDICAL HISTORY-ADULT Review of Records: reports: Old Records Reviewed Major Childhood Illnesses: reports: denies history Cardiovascular: reports: HTN Respiratory: reports: denies history Gastrointestinal: reports: denies history Obstetrical/Gynecological: reports: denies history Genitourinary: reports: denies history Musculoskeletal: reports: other (gout) Neurological: reports: denies history Endocrine/Immune: reports: other (Gout) Other Conditions: reports: denies history - PRIOR SURGERIES/PROCEDURES Surgical/Procedure History: reports: appendectomy, orthopedic (extremity) - IMMUNIZATION STATUS Childhood Immunizations: See Nurse Assessment Flu Vaccine: See Nurse Assessment - FAMILY HISTORY Family History: reviewed, not pertinent - SOCIAL HISTORY Smoking: quit less than 1 year (6 mos ago) Substance Use: denies Living Situation: family Physical Exam-General - PHYSICAL EXAM-ADULT Initial Vital Signs Reviewed: Yes - CONSTITUTIONAL General Appearance: alert, mild distress (from pain) - EYES Eyes: pink conjunctivae - HEAD, EARS, NOSE, MOUTH & THROAT HENMT: moist mucous membranes - NECK Neck: full range of motion, supple - RESPIRATORY Respiratory: chest non-tender, lungs clear, normal breath sounds, no pleuratic chest pain, no respiratory distress, no accessory muscle use - CARDIOVASCULAR Cardiovascular: regular rate, rhythm - GASTROINTESTINAL (ABDOMEN) Abdominal Exam: distended, tenderness (epigastric). negative: guarding, rigid, rebound - MUSCULOSKELETAL Back Exam: no CVA tenderness Extremity: normal range of motion, non-tender - SKIN Integumentary: normal color, normal turgor, warm/dry - NEUROLOGIC Neurologic: grossly normal - PSYCHIATRIC Psych/Mental Status: normal mood/affect, oriented x 3 - HEART Score HEART Score: History: Moderately Suspicious HEART Score: ECG: Non-Specific Repolarization Disturbance/LBBB/PM HEART Score: Age: > or = 65 Years HEART Score: Risk Factors for Atherosclerotic Disease: 1 or 2 Risk Factors HEART Score: Troponin: < or = Normal Limit Total HEART Score:: 5 Progress - PLAN OF CARE/RESULTS Progress/Plan/Lab Results: Vital Signs - 8 hr 06/10/19 19:44 Temperature 98.3 F Pulse Rate 72 Respiratory Rate 19 Blood Pressure 129/74 O2 Sat by Pulse Oximetry 96 Laboratory Results - last 24 hr 06/10/19 06/10/19 06/10/19 19:55 19:55 19:55 WBC RBC Hgb Hct MCV MCH MCHC RDW Std Deviation Plt Count MPV Neut % (Auto) Lymph % (Auto) Giles % (Auto) Eos % (Auto) Baso % (Auto) Neut # (Auto) Lymph # (Auto) Giles # (Auto) Eos # (Auto) Baso # (Auto) D-Dimer, Quantitative Sodium Potassium Chloride Carbon Dioxide Anion Gap BUN Creatinine Estimated GFR/1.73 m2 BUN/Creatinine Ratio Glucose Calculated Osmolality Calcium Total Bilirubin AST ALT Alkaline Phosphatase Creatine Kinase 121 Troponin T < 0.010 Uwa-M-Emcbywdtzeh Pept 69 Total Protein Albumin Globulin Albumin/Globulin Ratio TSH 06/10/19 06/10/19 06/10/19 19:55 19:55 19:55 WBC 9.30 RBC 4.47 L Hgb 13.4 L Hct 39.5 L MCV 88.4 MCH 30.0 MCHC 33.9 RDW Std Deviation 14.4 Plt Count 200 MPV 10.0 Neut % (Auto) 57.2 Lymph % (Auto) 30.5 Giles % (Auto) 10.3 H Eos % (Auto) 1.8 Baso % (Auto) 0.2 Neut # (Auto) 5.31 Lymph # (Auto) 2.84 Giles # (Auto) 0.96 H Eos # (Auto) 0.17 Baso # (Auto) 0.02 D-Dimer, Quantitative 0.33 Sodium 145 Potassium 3.7 Chloride 106 Carbon Dioxide 24 L Anion Gap 15 BUN 19 Creatinine 1.1 Estimated GFR/1.73 m2 > 60 BUN/Creatinine Ratio 17 Glucose 98 Calculated Osmolality 291 Calcium 9.3 Total Bilirubin 0.28 AST 17 ALT 12 Alkaline Phosphatase 77 Creatine Kinase Troponin T Dxx-Y-Eybbkxadoku Pept Total Protein 6.8 Albumin 4.0 Globulin 2.8 Albumin/Globulin Ratio 1.4 TSH 06/10/19 19:55 WBC RBC Hgb Hct MCV MCH MCHC RDW Std Deviation Plt Count MPV Neut % (Auto) Lymph % (Auto) Giles % (Auto) Eos % (Auto) Baso % (Auto) Neut # (Auto) Lymph # (Auto) Giles # (Auto) Eos # (Auto) Baso # (Auto) D-Dimer, Quantitative Sodium Potassium Chloride Carbon Dioxide Anion Gap BUN Creatinine Estimated GFR/1.73 m2 BUN/Creatinine Ratio Glucose Calculated Osmolality Calcium Total Bilirubin AST ALT Alkaline Phosphatase Creatine Kinase Troponin T Kze-P-Dhiibunvbbp Pept Total Protein Albumin Globulin Albumin/Globulin Ratio TSH 0.64 Orders Category Date Time Status Saline Loc NOW Care 06/10/19 19:30 Active NPO Diet 06/10/19 20:14 Active FLAT/UPRIGHT ABD/1 VIEW CHEST [RAD] Stat Exams 06/10/19 19:25 Completed CBC WITH ELECTRONIC DIFF [HEME] Stat Lab 06/10/19 19:55 Completed CK PROFILE [SP CHEM] Stat Lab 06/10/19 19:55 Completed COMPREHENSIVE METABOLIC PANEL [CHEM] Stat Lab 06/10/19 19:55 Completed D-DIMER [COAG] Stat Lab 06/10/19 19:55 Completed PRO B-NATRIURETIC PEPTIDE Stat Lab 06/10/19 19:55 Completed TROPONIN T Stat Lab 06/10/19 19:55 Completed TSH Stat Lab 06/10/19 19:55 Completed UA [URINALYSIS W/POSS RFLX CULT] [URINALYSIS] Stat Lab 06/10/19 20:40 Uncollected Hydromorphone [Dilaudid] Med 06/10/19 20:14 Discontinued 1 mg IV NOW ONE Magnesium Citrate [Citrate of Magnesia] Med 06/10/19 21:44 Discontinued 300 ml PO NOW ONE Simethicone Chew [Mylicon] Med 06/10/19 22:00 Discontinued 40 mg PO NOW ONE EKG [EKG] Stat Ther 06/10/19 19:21 Draft Result Diagrams: 06/10/19 19:55 06/10/19 19:55 - REASSESSMENT Reassessment #1 Time Reassessed: 22:00 Status: unchanged (pain has not improved with dilaudid or asa or nitro. plan for admission) - EKG 1 Time of EKG reading by physician:: 19:40 EKG Read and Signed by:: Quang Contreras EKG Interpretation (*Must complete 3 of following elements*): Abnormal Rate: 73 Rhythm: sinus with 1st degree AV block [place]: normal QRS: RBB OR Interval: normal ST Wave: normal Prior EKG Comparison: unchanged from prior (01/17/19) - XRAY 1 XRAY Study: Chest, Abdomen Impression: See EMR Report (FLAT/UPRIGHT ABD/1 VIEW CHEST - 06/10/2019 INDICATION: CP, abd distension TECHNIQUE: COMPARISON: 01/17/2019 FINDINGS: Lung volumes are low. Otherwise the chest is clear. There is mild constipation. No bowel obstruction. No free air or abnormal calcifications. IMPRESSION: Mild constipation. Electronically signed by Martell Ely 06/10/2019 8:14 PM) - CONSULTS/PCP/HOSPITALIST Notification #1 *Consult/PCP/Hospitalist*: Dr. Pepper Time Discussed: 22:42 Consult Disposition: Will see in ED Departure - Departure Date of Disposition Decision: 06/10/19 Time of Disposition Decision: 22:42 DIAGNOSIS: Abdominal pain, Chest pain Disposition: ADMITTED INPATIENT 09 Certified Medical Emergency: Emergent Condition: Stable Referrals and Follow-Ups: Lv Rocha MD [Primary Care Provider] - - Critical Care Note This patient required my direct & personal management of CC.: No Attestation - Physician/ BETSY Attestation The physician spent face to face time with patient:: Yes Advanced Practice Provider documentation review:: Supervising physician onsite and consulted in the evaluation and care of this patient. The physician did have a face to face encounter with the patient.
[2019-06-10 20:07] LABS: BASO# 0.02 X1000 (0.0-0.2); BASO% 0.2 % (0.0-0.8); EOS# 0.17 X1000 (0.0-0.7); EOS% 1.8 % (0.0-10.0); HEMATOCRIT 39.5 % (42.0-52.0); HEMOGLOBIN 13.4 g/dL (14.0-18.0); LYMPH# 2.84 X1000 (1.2-3.4); LYMPH% 30.5 % (20.5-51.1); MCHC 33.9 g/dL (33-37); MCV 88.4 FL (81-99); MONO# 0.96 X1000 (0.11-0.59); MONO% 10.3 % (1.7-9.3); NEUT# 5.31 X1000 (1.4-6.5); NEUT% 57.2 % (42.2-75.2); PLT 200 X1000 (130-400); RBC 4.47 XMIL (4.7-6.1); RDW 14.4 % (11.5-14.5)
--- NOTE | 2019-06-10 20:09 | EKG Report ---
Test Performed on : 06/10/2019 7:32:15 PM Test Reason : chest pain Blood Pressure : / mmHG Vent. Rate : 073 BPM Atrial Rate : 073 BPM P-R Int : 228 ms QRS Dur : 154 ms QT Int : 438 ms P-R-T Axes : 046 -21 018 degrees QTc Int : 482 ms Sinus rhythm. with 1st degree AV block. Right bundle branch block Abnormal ECG When compared with ECG of 18-JAN-2019 06:49, No significant change was found Unconfirmed Result
[2019-06-10] MEDS ORDERED: DILAUDID IV ONE ×3 (20:14→23:20)
--- NOTE | 2019-06-10 20:16 | Diag Imaging Result Doc PS360 ---
FLAT/UPRIGHT ABD/1 VIEW CHEST - 06/10/2019 INDICATION: CP, abd distension TECHNIQUE: COMPARISON: 01/17/2019 FINDINGS: Lung volumes are low. Otherwise the chest is clear. There is mild constipation. No bowel obstruction. No free air or abnormal calcifications. IMPRESSION: Mild constipation. Electronically signed by Martell Ely 06/10/2019 8:14 PM
[2019-06-10 20:30] LABS: AGAP 15; ALB/GLOB RATIO 1.4; ALKALINE PHOSPHATASE 77 U/L (32-122); BUN 19 mg/dL (8-22); CALCIUM 9.3 mg/dL (8.8-10.2); CHLORIDE 106 mmol/L (98-107); COSMO 291; CREATININE 1.1 mg/dL (0.7-1.2); ESTIMATED GFR > 60; GLUCOSE 98 mg/dL (70-104); GOT 17 U/L (10-34); GPT 12 U/L (10-44); POTASSIUM 3.7 mmol/L (3.5-5.1); SODIUM 145 mmol/L (136-145); TCO2 24 mmol/L (25-35); TOTAL BILIRUBIN 0.28 mg/dL (0.20-1.00); TOTAL PROTEIN 6.8 g/dL (6.3-8.3)
[2019-06-10] MEDS ORDERED: MYLICON DROPS PO ONE (21:44)
[2019-06-10] MEDS ORDERED: CITRATE OF MAGNESIA PO ONE (21:44)
[2019-06-10] MEDS ORDERED: MYLICON PO ONE (22:00)
[2019-06-11] MEDS ORDERED: ZOFRAN IV PRN (00:35)
[2019-06-11] MEDS ORDERED: SODIUM CHLORIDE 0.9% INJ SCH (00:35)
--- NOTE | 2019-06-11 00:42 | HISTORY AND PHYSICAL ---
CHIEF COMPLAINT: Right-sided chest pain, which has been ongoing for less than 1 day. HISTORY OF PRESENT ILLNESS: Mr. Wolf Kruger is a 73-year-old male who has a history of hypertension as well as a gout. He developed sudden onset of right-sided chest pain at about 9 a.m. today, 06/10/2019. The pain is sharp, on a scale of 0 to 10 is 10/10 and radiates to his back. It is made worse with activity and it improves with an analgesic agent. The patient denies similar such chest pain in the past. He indicates he recently had a cardiac workup done by his botany laboratory assistant, and he gives the indication that those tests were normal. The patient was seen and evaluated in the ER. Initial cardiac enzyme is negative. D-dimer is 0.33. Chest x-ray shows lungs are clear. EKG shows a normal sinus rhythm with first-degree AV block and, right bundle- branch block. The patient now will be admitted to the floor for further management. PAST MEDICAL HISTORY: Hypertension, as well as gout. PAST SURGICAL HISTORY: He has had 2 back surgeries, 3 right rotator cuff surgeries, as well as appendectomy. FAMILY HISTORY: Positive for heart disease. SOCIAL HISTORY: No current history of cigarette smoking, alcohol or drug use. He quit cigarette smoking about 6 months ago. ALLERGIES: He is allergic to Solu-Medrol as well as morphine. MEDICATIONS: He takes allopurinol 300 mg p.o. once a day, hydroxyzine 25 mg p.o. p.r.n., aspirin 81 mg p.o. daily, hydrochlorothiazide 25 mg p.o. daily, and also metoprolol 25 mg p.o. twice a day. REVIEW OF SYSTEMS: Constitutional: No fever. RESOLUTION EXPERT: No headaches. Eyes: No blurred vision. ENT: No sore throat. Respiratory: No cough. GI: Has some nausea. No abdominal pain. : No dysuria. Dermatology: No skin lesions. Hematology: No bleeding problems. Musculoskeletal: Has gout. Endocrinology: No diabetes or thyroid disease. PHYSICAL EXAMINATION: VITAL SIGNS: Temperature is 98.3 degrees, pulse is 72, respiratory rate is 19, blood pressure is 129/74, O2 saturation is 96%. HEENT: Atraumatic, normocephalic. He is anicteric. Pupils are equal and poorly reactive to light. No oral lesions. NECK: The patient does have lymphadenopathy on the right side of the neck just posterior to the right temporomandibular joint region. CARDIOVASCULAR: S1, S2. RESPIRATORY: Has evidence of rales in both lung goins posteriorly. ABDOMEN: Soft, full, nontender, no masses felt. EXTREMITIES: No evidence of edema. CENTRAL NERVOUS SYSTEM: No obvious focal deficits noted. LABORATORY DATA: WBC is 9.3, hematocrit 39.5, with a platelet count of 200,000. D-dimer is 0.33, sodium is 145, potassium 3.7, chloride is 106, bicarbonate is 24, BUN is 19, creatinine is 1.1. CPK is 121, troponin is less than 0.10. IMAGING: Chest x-ray shows chest is clear. Abdominal x-ray positive for mild constipation. EKG shows sinus rhythm with a first-degree AV block and right bundle-branch block. ASSESSMENT AND PLAN: 1. Atypical chest pain. We will place the patient on telemetry. Follow up on serial cardiac enzymes. We will obtain a CTA of the chest as well as a 2D echocardiogram of the heart. Optimize pain control. 2. Hypertension. Continue current antihypertensive regimen. 3. Gout. Continue allopurinol. 4. Anemia. Check iron studies, b12 , folate as well as stool for occult blood. 5. Constipation. We will place the patient on stool softeners. 6. DVT prophylaxis. Lovenox. 7. GI prophylaxis. PPI. cc: Deo Pepper MD MTDD
[2019-06-11] MEDS: NS 1,000 ML IV SCH ×2 (01:37→14:10)
[2019-06-11] MEDS: PROTONIX IV SCH ×2 (01:37→23:29)
[2019-06-11] MEDS: DILAUDID IV PRN ×6 (06:29→23:30)
[2019-06-11 06:38] LABS: BASO# 0.02 X1000 (0.0-0.2); BASO% 0.2 % (0.0-0.8); EOS# 0.18 X1000 (0.0-0.7); EOS% 1.5 % (0.0-10.0); HEMATOCRIT 45.3 % (42.0-52.0); HEMOGLOBIN 14.6 g/dL (14.0-18.0); IMM GRAN# 0.02 X1000 (0.0-0.04); IMM GRAN% 0.2 % (0.0-0.5); LYMPH# 2.88 X1000 (1.2-3.4); LYMPH% 24.4 % (20.5-51.1); MCHC 32.2 g/dL (33-37); MCV 89.9 FL (81-99); MONO# 1.25 X1000 (0.11-0.59); MONO% 10.6 % (1.7-9.3); MPV 9.7 FL (7.4-10.4); NEUT# 7.45 X1000 (1.4-6.5); NEUT% 63.1 % (42.2-75.2); PLT 211 X1000 (130-400); RBC 5.04 XMIL (4.7-6.1); RDW 14.8 % (11.5-14.5)
[2019-06-11 07:12] LABS: AGAP 17; ALB/GLOB RATIO 1.2; ALBUMIN 4.2 g/dL (3.5-5.0); ALKALINE PHOSPHATASE 88 U/L (32-122); BUN 16 mg/dL (8-22); CALCIUM 9.1 mg/dL (8.8-10.2); CHLORIDE 99 mmol/L (98-107); CHOLESTEROL 196 mg/dL (0-200); COSMO 272; CREATININE 1.1 mg/dL (0.7-1.2); ESTIMATED GFR > 60; GLUCOSE 82 mg/dL (70-104); GOT 19 U/L (10-34); GPT 13 U/L (10-44); HDL 59 mg/dL (35-55); LDL 115 mg/dL; SODIUM 136 mmol/L (136-145); TCO2 20 mmol/L (25-35); TOTAL BILIRUBIN 0.56 mg/dL (0.20-1.00); TOTAL PROTEIN 7.7 g/dL (6.3-8.3); TRIGLYCERIDES 108 mg/dL (39-160); VLDL 22 mg/dL
--- NOTE | 2019-06-11 07:43 | Diag Imaging Result Doc PS360 ---
EXAM: CT ANGIOGRM PULMONARY ARTERIES INDICATION: R/O PE TECHNIQUE: This exam was performed using automated exposure control, adjustment of mA or kV according to patient size, and/or use of iterative reconstruction technique. Thin section axial images and 3-D MIPS were obtained. COMPARISON: None. FINDINGS: There is no evidence of pulmonary embolism. There is no evidence of thoracic aortic aneurysm or dissection. The heart appears mildly prominent. There are a few calcified mediastinal lymph nodes indicating prior granulomatous disease. There is no significant mediastinal or hilar lymphadenopathy appreciated, otherwise. The esophagus appears somewhat prominent and fluid-filled suggesting likely reflux. There could be mild wall thickening as well throughout suggesting possible esophagitis. Please correlate clinically. There is bilateral airspace consolidation with a basilar predominance suggesting pneumonia. There is also likely a component of atelectasis as well. There is no pleural fluid collection and no pneumothorax. Limited views of the upper abdomen reveal mild hepatic steatosis and mild thickening of the left adrenal gland, statistically most likely due to an underlying adenoma or hyperplasia. IMPRESSION: 1.Bilateral lower lung zone airspace consolidation suggesting pneumonia with likely a component of atelectasis. 2.Somewhat prominent esophagus that is likely fluid-filled suggesting reflux and possible wall thickening that is nonspecific. Consider esophagitis. 3.No evidence of pulmonary embolism. 4.Other incidental/nonacute findings detailed above. Electronically signed by Wolf Stevenson 06/11/2019 7:41 AM
[2019-06-11 08:53] LABS: IRON SATURATION 11 %; TIBC 288 ug/dL; TOTAL IRON 33 ug/dL (53-167); UNBOUND IRON 255 ug/dL (112-346)
[2019-06-11] MEDS: ZYLOPRIM PO SCH (09:53)
[2019-06-11] MEDS: COLACE PO SCH (09:53)
[2019-06-11] MEDS: LOPRESSOR PO SCH ×2 (09:53→20:49)
[2019-06-11] MEDS: LOVENOX SUBQ SCH (09:53)
[2019-06-11] MEDS: ASPIRIN EC PO SCH (09:53)
[2019-06-11] MEDS: HYDROCHLOROTHIAZIDE PO SCH (09:53)
--- NOTE | 2019-06-11 10:11 | PROGRESS NOTE ---
DATE: 06/11/2019 Mr. Kruger was admitted yesterday, 06/10/2019, right-sided chest pain which sounds sharp. It sounds like it was musculoskeletal. It hurts with any position, moving his right arm. A 73-year- old with a history of hypertension as well as gout. Developed sudden onset of right-sided chest pain about 9 o'clock on 06/10/2019. Chest pain was sharp. Scale of 0 to 10, it was a 10. Radiated to his back, got worse with activity, improved with analgesic agent. Patient denies similar such chest pain in the past. Indicates he recently had cardiac workup done with his heavy equipment operator/paver. Gives indication that those tests were normal. The patient seen and evaluated in the emergency room. Cardiac enzymes were negative. D-dimer was 0.33. Chest x-ray showed lungs were clear. EKG, normal sinus rhythm, first-degree atrioventricular block, and right bundle branch block. Past medical history of hypertension and gout. Admitted with: 1. Atypical chest pain. Placed on telemetry. They obtained a CT of the chest and the plan was to get a CTA of the chest and 2D echocardiogram of the heart. Appears to be chest wall pain. 2. Hypertension. Blood pressure appears well controlled. It may be running a little high because of his pain. 3. Gout, on allopurinol. 4. Anemia. We are going to check iron studies, B12, and folate. 5. He is on DVT prophylaxis with Lovenox and gastrointestinal prophylaxis as well. REVIEW OF ORDERS: He is on allopurinol 300 mg a day, aspirin 81 mg a day, Colace 100 mg b.i.d., hydrochlorothiazide 25 mg a day, Lopressor 25 mg b.i.d., normal saline at 75 mL an hour, Protonix 40 mg IV q.24 hours. LABORATORY DATA: White count is 11,800, hematocrit is 45, platelet count 211,000. Chemistry: Sodium 136, potassium 4.0, chloride 99, BUN 16, creatinine 1.1. cc: Cesar Magana MD
[2019-06-11 11:50] LABS: URINE SOURCE CLEAN CATCH
[2019-06-11 11:53] LABS: BILIRUBIN URINE NEGATIVE (NEGATIVE); BLOOD URINE NEGATIVE (NEGATIVE); COLOR YELLOW; GLUCOSE URINE NEGATIVE (NEGATIVE); KETONE URINE NEGATIVE (NEGATIVE); LEUKOCYTES URINE NEGATIVE (NEGATIVE); NITRITE URINE NEGATIVE (NEGATIVE); PROTEIN URINE NEGATIVE (NEGATIVE); SP GRAVITY URINE 1.041; TURBIDITY URINE CLEAR (CLEAR); UROBILINOGEN URINE NORMAL (NORMAL)
[2019-06-11 11:54] LABS: UR EPITHELIAL CELLS <10 /HPF (<10); URINE BACTERIA NEGATIVE /HPF; URINE RBC <10 /HPF (<10); URINE WBC <10 /HPF (<10)
[2019-06-12] MEDS: PROTONIX IV SCH ×2 (04:37→23:24)
[2019-06-12] MEDS: COLACE PO SCH ×3 (04:37→21:03)
[2019-06-12] MEDS: DILAUDID IV PRN ×2 (05:00→09:00)
[2019-06-12] MEDS: NS 1,000 ML IV SCH ×2 (05:00→23:20)
[2019-06-12] MEDS: HYDROCHLOROTHIAZIDE PO SCH (09:05)
[2019-06-12] MEDS: ZYLOPRIM PO SCH (09:05)
[2019-06-12] MEDS: ASPIRIN EC PO SCH (09:05)
[2019-06-12] MEDS: LOVENOX SUBQ SCH (09:05)
[2019-06-12] MEDS: LOPRESSOR PO SCH ×2 (09:05→21:03)
--- NOTE | 2019-06-12 09:54 | PROGRESS NOTE ---
DATE: 06/12/2019 SUBJECTIVE: He still hurting in his back between his shoulder blades. No anterior chest pain. The pain is reproducible just to touch between the shoulder blades. It appears to be musculoskeletal. He gets some relief with elevation of his arms and with head tilted back. OBJECTIVE: Temperature 98.4 degrees, pulse 66, respirations 18, blood pressure 137/65. Pupils are equal and round. Lungs are clear in all lung goins. Cardiovascular exam: Regular rhythm and rate without murmur or S3. Urine output is 3400 mL. ASSESSMENT AND PLAN: 1. Atypical chest pain. Really no sign of cardiac ischemia. He had a pulmonary CT angiogram, bilateral lower lung zone airspace consolidations suggestive of pneumonia, likely component of atelectasis. Somewhat prominent esophagus, likely fluid-filled suggesting reflux and possible wall thickening. No evidence of pulmonary embolism. 2. Hypertension. Blood pressure appears to be under good control. 3. Gout. He is on his allopurinol. 4. He is eating well. I think hopefully he can go home. I do not see any evidence of cardiac ischemia. cc: Cesar Magana MD
[2019-06-12] MEDS: ROBAXIN PO PRN ×2 (11:12→21:03)
[2019-06-12] MEDS: NORCO-7.5 PO PRN ×2 (13:34→19:39)
[2019-06-13] MEDS: PROTONIX IV SCH (01:36)
[2019-06-13] MEDS: NORCO-7.5 PO PRN ×3 (03:07→16:33)
[2019-06-13] MEDS ORDERED: FLU VACCINE IM ONE (04:03)
[2019-06-13] MEDS: HYDROCHLOROTHIAZIDE PO SCH (08:38)
[2019-06-13] MEDS: ZYLOPRIM PO SCH (08:38)
[2019-06-13] MEDS: LOPRESSOR PO SCH (08:38)
[2019-06-13] MEDS: COLACE PO SCH (08:38)
[2019-06-13] MEDS: ASPIRIN EC PO SCH (08:38)
[2019-06-13] MEDS: LOVENOX SUBQ SCH (08:39)
[2019-06-13] MEDS: ROBAXIN PO PRN ×2 (08:48→15:58)
--- NOTE | 2019-06-13 10:00 | PROGRESS NOTE ---
DATE: 06/13/2019 SUBJECTIVE: Mr. Kruger is better, but he still has pain that comes and goes. It seems to be in his rhomboid, between his shoulder blades and confined to that. He has a lot of muscle spasm, and Dr. Brendon Sood did some physical therapy on him, and I think will try and get him home this afternoon. OBJECTIVE: Vital Signs: He remains afebrile, temperature 98.4 degrees, pulse 64, respirations 16, blood pressure 133/79. HEENT: Pupils are equal and round. Lungs: Clear in all lung goins. Cardiovascular: Regular rhythm and rate without murmur or S3. Urine output was 5500 mL. ASSESSMENT AND PLAN: 1. Atypical chest pain. Anterior pain is resolved. He really has pain between his shoulder blades, consistent with rhomboid spasm, and continue his muscle relaxer, and I will give him some pain medicine. Will see if he can go home today. 2. Hypertension. Blood pressure is well controlled. 3. Gout, on allopurinol. REVIEW OF ORDERS: I do not see any change. Blood pressures appear well controlled. We are going to get a chest x-ray at his request. Will get one this morning, get a PA and lateral. cc: Cesar Magana MD MTDD
--- NOTE | 2019-06-13 10:09 | Diag Imaging Result Doc PS360 ---
EXAM: CHEST-2 VIEWS HISTORY: chest pain TECHNIQUE: Two views COMPARISON: 06/10/2019 FINDINGS: The film at the basilar atelectasis. The heart is mildly prominent. The vessels are not distended. There is no consolidation. No pleural effusions. IMPRESSION: Development of basilar atelectasis Electronically signed by Stanford Flor 06/13/2019 10:06 AM
[2019-06-13] MEDS: NS 1,000 ML IV SCH (13:11)
[2019-06-13 16:11] VITALS: BP 135/66
--- NOTE | 2019-06-13 18:04 | DISCHARGE SUMMARY ---
ADMISSION DATE: 06/10/2019 DISCHARGE DATE: 06/13/2019 HOSPITAL COURSE: This is a 73-year-old, who is a patient of Dr. Lv Rocha. He complained of right-sided chest pain ongoing for less than a day. He has a history of hypertension as well as gout. Developed sudden onset of right-sided chest pain about 9:00 morning of admission on 06/10/2019. Pain was sharp. On a scale of 0 to 10, it was 10/10. Radiates to his back. It is made worse with activity, improves with analgesic agent. The patient denied similar such chest pain in the past. He indicates recently cardiac workup was done, but terra cotta setter gave no indications of any coronary artery disease. Patient was seen and evaluated in the emergency room. Initial cardiac enzymes and D-dimer unremarkable. EKG showed normal sinus rhythm. His pain seemed to localize between his scapulas in the rhomboid muscles. He had significant rhomboid spasm. We started him on a muscle relaxer and he seemed to be starting to get some relief. His chest x-ray was repeated and he had some bibasilar atelectasis, but no sign of infiltrate. His pulmonary arteriogram on 06/10/2019, showed bilateral lower lung airspace consolidation consistent with atelectasis, somewhat prominent esophagus thickening, and consider some esophagitis. He wanted to go home. I will discharge him on a muscle relaxer, and I will put him on a proton pump inhibitor for a time. He will go home on allopurinol 300 mg a day, aspirin 81 mg a day, Colace 100 mg b.i.d., hydrochlorothiazide 25 mg daily. I will give him about 40 of [place] 7.5 q.6 hours p.r.n., Robaxin 750 mg q.6 hours p.r.n. muscle spasm, Lopressor 25 mg b.i.d., and Protonix 40 mg once a day which he will take for 30 days with some refills x3. I want him to follow up with Lv Rocha in a couple of weeks. cc: Cesar Magana MD
== END 2019-06-13 16:47 | disposition home or self-care (01) | DRG 313 ==
LOC: SUPCPDRO → ED 19:17 → 4N 23:52 → SUATTDRO 23:52
PROVIDERS: ATTEND Emergency Medicine